=== PATIENT | female | born 1960 | race Caucasian/White ===

== ENCOUNTER 2022-02-25 08:53 | Emergency (ER) | payer MEDICARE, OTHER ==
[~2022-02-25] VITALS: Ht 172.7 cm; Wt 104.8 kg
[~2022-02-25 08:53] MED LIST: AMLODIPINE BESY10 MG PO; ASPIRIN EC81 MG PO; BUPROPION XL150 MG PO; CITALOPRAM HBR40 MG PO; CLONIDINE HCL0.1 MG PO; GABAPENTIN600 MG PO; HUMALOG100 UNIT/1 SUB-Q; HYDROCHLOROTHIA25 MG PO; LEVEMIR100 UNIT/1 SUB-Q; LISINOPRIL20 MG PO; LORATADINE10 MG PO; METFORMIN HCL1000 MG; METHOCARBAMOL750 MG PO; OMEPRAZOLE20 MG PO; PRAVASTATIN SOD40 MG PO; VENTOLIN HFA18 GM INH
--- OUTSIDE RECORDS SUMMARY | 2022-02-25 08:57 | XMS ---
PreManage Notification: CHUY SOTO Security Technical Internship Events No recent Security Events currently on file CRITERIA MET - ANIKETP CARE PROVIDERS CHRIS DENNIS Physician Arcgis Developer 09/24/2017-Current PHONE: [phone] Anna has no Care Guidelines for this patient. E.DChristopher VISIT COUNT (12 MO.) 2 [facility] Estephania - Ilir 1 [place] TOTAL 3 NOTE: Visits indicate total known visits. ED/UCC VISIT TRACKING (12 MO.) 02/25/2022 08:[address] [facility] [place] TYPE: Emergency COMPLAINT: - N/V/D, SOB, LUMP IN CHEST 10/06/2021 18:31 [facility] [place] TYPE: Emergency COMPLAINT: - ankle pain DIAGNOSES: - Type 2 diabetes mellitus with diabetic nephropathy - Chronic kidney disease, stage 4 (severe) - Sprain of unspecified ligament of right ankle, initial encounter - Type 2 diabetes mellitus with diabetic neuropathy, unspecified - Type 2 diabetes mellitus with hyperglycemia - Hypertensive chronic kidney disease with stage 1 through stage 4 chronic kidney disease, or unspecified chronic kidney disease - Hyperlipidemia, unspecified - Sidewalk as the place of occurrence of the external cause - Other slipping, tripping and stumbling without falling, initial encounter - assisted (current) use of insulin - Tobacco use - Other fpc (current) drug therapy 06/07/2021 13:13 [facility] [place] TYPE: Emergency DIAGNOSES: - Contact with and (suspected) exposure to COVID19 - Unspecified asthma, uncomplicated - Other fpc (current) drug therapy - Hypo-osmolality and hyponatremia - Hyperkalemia - Chronic kidney disease, stage 3 unspecified - Type 2 diabetes mellitus with other specified complication - assisted (current) use of oral hypoglycemic drugs - vault person (current) use of insulin - Type 2 diabetes mellitus with hyperglycemia - Type 2 diabetes mellitus with diabetic chronic kidney disease - Cervicalgia - Type 2 diabetes mellitus with hyperosmolarity without nonketotic hyperglycemic-hyperosmolar coma ([facility]) - Personal history of nicotine dependence - Disorder of kidney and ureter, unspecified - Obstructive sleep apnea (adult) (pediatric) - Obesity, unspecified INPATIENT VISIT TRACKING (12 MO.) No inpatient visits to display in this time frame [email or web address]
[2022-02-25] MEDS ORDERED: ONDANSETRON ODT8 MG PO (12:06)
== END 2022-02-25 12:20 | disposition home or self-care (01) ==
LOC: ED 08:53
DX: E86.0 Dehydration (principal); R11.10 Vomiting, unspecified; F12.90 Cannabis use, unspecified, uncomplicated; Z88.5 Allergy status to narcotic agent; Z79.82 Long term (current) use of aspirin; Z79.899 Other long term (current) drug therapy; Z79.4 Long term (current) use of insulin; Z79.84 Long term (current) use of oral hypoglycemic drugs
CPT/HCPCS: 36415; 74176; 76705; 80053; 81001; 83690; 85025; 96361; 96374; 96375; 99284-25; J2405; J7030

== ENCOUNTER 2022-09-02 07:20 | Day surgery (SDC) | payer MEDICARE, OTHER ==
[2022-08-26 09:53] VITALS: BP 103/73
[~2022-09-02] VITALS: Ht 172.7 cm; Wt 103.2 kg
[~2022-09-02 07:20] MED LIST changes: +ATIVAN0.5 MG PO; +COGNIQUIL CAPS1 EACH PO; +FARXIGA5 MG PO; +FLOVENT HFA12 G1 INH; +FOLIC ACID1 MG PO; +INCRUSE ELLI62.5 MCG IH; +ONDANSETRON ODT8 MG PO; +TRAMADOL HCL50 MG PO; +TRIAMCINOLONE A15 G1 TOP; +VICTOZA 2-0.6 MG/0.1 SUB-Q; +VICTOZA 3-0.6 MG/0.1 SUB-Q
[2022-09-02] MEDS ORDERED: HUMULIN R500 UNIT/2 SUB-Q (08:20)
[2022-09-02 08:23] VITALS: BP 156/77
--- NOTE | 2022-09-02 08:40 | NUR ---
PT SITTING ON SIDE OF BED, VOID BAG IN HAND. PT IS DEALING SOME NAUSEA ISSUES GAVE COMFORT, PT REQUESTED PRAYER WILL FOLLOW
--- NOTE | 2022-09-02 10:36 | NUR ---
09/02/22 1036 Libby Molina 1029 PATIENT ARRIVES TO PACU UNRESPONSIVE TO VERBAL STIMULI, ORAL AIRWAY IN PLACE. RESP EVEN AND UNLABORED, NC AT 4 LITERS TURNED OFF ON ARRIVAL TO PACU. 1030 PATIENT OPENING EYES. ORAL AIRWAY REMOVED. PATIENT REORIENTED TO PACU. RESP EVEN AND UNLABORED, ROOM AIR SATS >95%. DENIES PAIN OR NAUSEA. REPOSITIONS SELF TO BACK. HOB ELEVATED.
[2022-09-02 10:54] VITALS: BP 128/64
--- NOTE | 2022-09-02 13:49 | OR ---
[facility] [address], [place] [address] Signed DATE OF OPERATION: 09/02/2022 SURGEON: Manjinder Torres MD PREOPERATIVE DIAGNOSES: 1. Right upper quadrant abdominal pain associated with nausea, vomiting, bloating, and constipation. 2. Sister with colon cancer age 53 and alive in her 70s. 3. Personal history of multiple colonic polyps in 2017 and 2018 at the age of 55 and 56. POSTOPERATIVE DIAGNOSES: 1. Mild diffuse gastritis. 2. Hiatal hernia (38-35 cm). 3. GE junction at 35 cm. 4. 6 mm polyp at 40 cm and left colon (snare). 5. 5 mm polyp at 65 cm in left colon. 6. 4 mm polyp at the base of cecum. 7. 5 mm polyp at proximal right colon. 8. 5 mm polyp at 38 cm in left colon. 9. 4 mm polyp at 10 cm in the rectum. PROCEDURES: 1. EGD with CLOtest and biopsies of the antrum and GE junction. 2. Colonoscopy with hot biopsy and snare polypectomy. ESTIMATED BLOOD LOSS: None. 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 She had her adrenalectomy in 2019. She came with the above-listed complaints. Her workup so far has been negative. We did order a HIDA scan of her gallbladder with ejection fraction. That is to be done next week. In the meantime, she found out that her sister was 53 when she was diagnosed with colon cancer and is still alive in her 70s. She is obviously having trouble with the right upper quadrant abdominal pain, nausea, vomiting, bloating and constipation. She thinks she has chalky camacho like stool. CT scan and MRCP were all negative. The common bile duct is slightly dilated to 8 mm. There were no stones. She cannot recall if an ultrasound of the gallbladder was done for sure. She does not recall HIDA scan. She said her symptoms are ongoing and she is quite miserable. She talked about Dr. Grace Electronically Signed By: MANJINDER TORRES MD 09/02/22 1349 PATIENT NAME: CHUY SOTO OPERATIVE REPORT DATE OF : 62 REPORT #: [id number] PHYSICIAN: MANJINDER TORRES MD PCP: CHRIS DENNIS PA-C REPORT IS CONFIDENTIAL AND NOT TO BE RELEASED WITHOUT AUTHORIZATION [facility] [address], [place] [address] Signed performing her 3 colonoscopies, 2 in 2017 and again in 2018. Apparently, she had a large number of polyps removed. We still do not have those results. She was age 55 and age 56 at that time. She was then asked to follow up in 5 years. She thinks after her initial bowel movement then, her stools are much softer. She is quite coughing and it is chalky in color. In the office, I had given her a pamphlet on both upper and lower endoscopy. We had reviewed that in detail. She understands there is risk including, but not limited to gas bloating, crampy abdominal pain, bleeding, perforation requiring surgery, and missed diagnosis. We had reviewed the bowel prep in detail. She took an entire gallon of polyethylene glycol with actually good results. She thinks she threw up the last 32 ounces. We will let her drink the polyethylene glycol all day. She has had trouble being clean for her previous colonoscopies. Although, today I thought she was actually pretty good. In addition, because of her heavy round face, heavy neck, chest and abdomen from her Bing syndrome plus her advanced medical issues including the sleep apnea and her diabetes, we asked for monitored anesthesia care with propofol infusion. That turned out to be a chung decision. About long term through we had to use an oral airway to keep her from obstructing. She had expressed understanding and wished to proceed. PROCEDURE NOTE: Chuy was taken into our endoscopy suite and placed in the supine semi-recumbent position. The bite block was utilized for the case. She was given monitored anesthesia care with propofol infusion per our nurse manager of operations. She has a difficult airway throughout and we finally were able to place an oral airway once we had her on her side for the colonoscopy. That helped us quite a bit. We passed the scope over into the posterior oropharynx and it looks like she has little mucus just above the vocal cords and slightly below the arytenoids. We passed the scope down the esophagus and out into the duodenum. The duodenum and pyloric channel were unremarkable. She had very mild inflammatory changes throughout the stomach. We took a biopsy of the antrum for pathologic review as well as CLOtest. Upon retroflexion of the scope, we could see a hiatal hernia, but it was at a difficult angle. We withdrew the scope up into the area of the GE junction, which was compliant without stricture. From above, we made sure her hiatal hernia from 38 cm back to 35 cm. She has mild disruption to the Z-line. There was no Evangelista's mucosa. We saw no ulcers in the pyloric bulb or the stomach. We took a biopsy along the edge of the Z-line for pathologic review. There was no Evangelista's mucosa and no distal esophagitis. The middle and upper esophagus were unremarkable. After this, the gastroscope was removed and the gas was suctioned out. Chuy tolerated the upper endoscopy well. Chuy was rotated into the left lateral decubitus position. She was maintained on IV propofol per our nurse manager of operations. A digital rectal exam was performed and this did not demonstrate any significant external hemorrhoids. She had good sphincter tone. There were no masses. The colonoscope was inserted and passed under direct Electronically Signed By: MANJINDER TORRES MD 09/02/22 1349 PATIENT NAME: CHUY SOTO OPERATIVE REPORT DATE OF : 62 REPORT #: [id number] PHYSICIAN: MANJINDER TORRES MD PCP: CHRIS DENNIS PA-C REPORT IS CONFIDENTIAL AND NOT TO BE RELEASED WITHOUT AUTHORIZATION [facility] [address], [place] [address] Signed visualization of the camera. We had to place an oral airway and that was able to settle down her abdominal breathing. We made our way up to the cecum with extra propofol and some abdominal compression. Overall, her prep was actually pretty good. She had a little liquid stool in the cecum and we were able to suction that out. The above-mentioned polyps were easily removed with the help of hot biopsy forceps. We used a combination of the snare and then followed by the hot biopsy forceps back at 40 cm. We did not see any diverticula. Once in the rectum, the scope had been retroflexed and really she has minimal if any internal hemorrhoid tissue. After this, the gas was suctioned out and the colonoscope removed. Chuy tolerated the lower endoscopy quite well. RECOMMENDATIONS: I will see Chuy back in my office in 7 to 14 days to review her results. She had 6 polyps removed out of the colon. In that regard, she could come as early as 3 years, but no later than 5 years for followup colonoscopy. She should always have monitored anesthesia care as described above. She should always do a double bowel prep. Manjinder Torres MD ALB/MODL /[id number] cc: hCris Torres MD Copies: MANJINDER TORRES MD ~ Electronically Signed By: MANJINDER TORRES MD 09/02/22 1349 PATIENT NAME: CHUY SOTO OPERATIVE REPORT DATE OF : 62 REPORT #: [id number] PHYSICIAN: MANJINDER TORRES MD PCP: CHRIS DENNIS PA-C REPORT IS CONFIDENTIAL AND NOT TO BE RELEASED WITHOUT AUTHORIZATION
--- NOTE | 2022-09-04 11:35 | PATH ---
[facility] [address] [place], [place] [address] Signed SPECIMEN(S): A ANTRUM/PYLORUS BIOPSY SPECIMEN(S): B GE JUNCTION BIOPSY SPECIMEN(S): C DESCENDING/LEFT COLON POLYP AT 40 CM SPECIMEN(S): D DESCENDING/LEFT COLON POLYP AT 65 CM SPECIMEN(S): E CECUM POLYP SPECIMEN(S): F PROXIMAL ASCENDING/RIGHT COLON POLYP SPECIMEN(S): G COLON POLYP AT 38 CM SPECIMEN(S): H RECTAL POLYP AT 10 CM SPECIMEN SOURCE: A. ANTRUM/PYLORUS BIOPSY B. GE JUNCTION BIOPSY C. DESCENDING/LEFT COLON POLYP AT 40 CM D. DESCENDING/LEFT COLON POLYP AT 65 CM E. CECUM POLYP F. PROXIMAL ASCENDING/RIGHT COLON POLYP G. COLON POLYP AT 38 CM H. RECTAL POLYP AT 10 CM CLINICAL HISTORY: Right upper quadrant pain; nausea; abdominal bloating; belching; history of colon polyps; chronic constipation. Post: Small hiatal hernia; mild gastritis FINAL PATHOLOGIC DIAGNOSIS: A. Antrum / pylorus biopsy: - Benign gastric antral-type mucosa with focal slight chronic inflammation. - Negative for evidence of Helicobacter organisms on immunostained sections. B. Gastroesophageal junction biopsy: - Benign esophageal mucosa, negative for increased epithelial eosinophils. C. Descending / left colon polyp at 40 cm: - Tubular adenoma (three fragments). D. Descending / left colon polyp at 65 cm: - Tubular adenoma (three fragments). E. Cecum polyp: - Tubular adenoma (two fragments). F. Proximal ascending / right colon polyp: - Tubular adenoma (two fragments). G. Colon polyp at 38 cm: - Hyperplastic polyp (one fragment). H. Rectal polyp at 10 cm: - Hyperplastic polyp (one fragment). PATIENT NAME: CHUY SOTO PATHOLOGY DATE OF : 62 REPORT #: [id number] PHYSICIAN: BELKYS PATHOLOGY PCP: CHRIS DENNIS PA-C REPORT IS CONFIDENTIAL AND NOT TO BE RELEASED WITHOUT AUTHORIZATION [facility] [address] [place], [place] [address] Signed JVR:[facility]:C2NR MICROSCOPIC EXAMINATION: Histologic sections of all submitted blocks are examined by light microscopy. These findings, together with the gross examination, support the pathologic diagnosis. A Helicobacter pylori immunostain is performed with appropriate positive and negative controls on block (A1) and is negative for organisms. A CK AE1/3 immunostain is performed with appropriate controls on block (A1) and is negative for occult carcinoma. JVR:[facility] GROSS DESCRIPTION: A. The specimen, labeled and designated "Rice, antrum/pylorus biopsy," is received in formalin and consists of one daniels soft tissue fragment measuring 0.5 cm. Entirely submitted in (A1). B. The specimen, labeled and designated "Rice, GE junction biopsy," is received in formalin and consists of one daniels soft tissue fragment measuring 0.4 cm. Entirely submitted in (B1). C. The specimen, labeled and designated "Rice, descending/left colon polyp at 40 cm," is received in formalin and consists of three daniels soft tissue fragments, ranging from 0.2 to 0.3 cm. Entirely submitted in (C1). D. The specimen, labeled and designated "Rice, descending/left colon polyp at 65 cm," is received in formalin and consists of four daniels soft tissue fragments, ranging from 0.3 to 0.4 cm. Entirely submitted in (D1). E. The specimen, labeled and designated "Rice, cecum polyp," is received in formalin and consists of three daniels soft tissue fragments, ranging from 0.3 to 0.4 cm. Entirely submitted in (E1). F. The specimen, labeled and designated "Rice, proximal ascending/right colon polyp," is received in formalin and consists of two daniels soft tissue fragments, ranging from 0.1 to 0.2 cm. Entirely submitted in (F1). G. The specimen, labeled and designated "Rice, colon polyp at 38 cm," is received in formalin and consists of one daniels soft tissue fragment measuring 0.3 cm. Entirely submitted in (G1). H. The specimen, labeled and designated "Rice, rectal polyp at 10 cm," is received in formalin and consists of one daniels soft tissue fragment measuring 0.3 cm. Entirely submitted in (H1). VB (under the direct supervision of a pathologist) PATIENT NAME: CHUY SOTO PATHOLOGY DATE OF : 62 REPORT #: [id number] PHYSICIAN: BELKYS SANDOVAL PCP: CHRIS DENNIS PA-C REPORT IS CONFIDENTIAL AND NOT TO BE RELEASED WITHOUT AUTHORIZATION [address] [address] Signed The Gross Description was prepared using a voice recognition system. The report was reviewed for accuracy; however, sound-alike word errors, addition and/or deletions may occur. If there is any question about this report, please contact Client Services. ADDITIONAL NOTES: Immunohistochemical and/or in situ hybridization studies were performed on this case with the appropriate positive controls that react as expected. This test was developed and its performance characteristics determined by [email or web address]. It has not been cleared or approved by the U.S. Food and Drug Administration. The FDA has determined that such clearance or approval is not necessary. This test is used for clinical purposes. It should not be regarded as investigational or for research. [email or web address] is certified under the Clinical Laboratory Improvement Amendments of 1988 (CLIA) as qualified to perform high complexity clinical laboratory testing. This assay has not been validated for specimens that have been decalcified. PERFORMING LABORATORY: The technical component was performed by [email or web address], [address] [place] [id number] (CLIA# [id number]). Professional interpretation was performed by [facility] [address] [address] (CLIA#: [id number]). Diagnostician: Dru Potter MD Pathologist Electronically Signed 09/04/2022 Copies: ~ PATIENT NAME: CHUY SOTO PATHOLOGY DATE OF : 62 REPORT #: [id number] PHYSICIAN: BELKYS SANDOVAL PCP: CHRIS DENNIS PA-C REPORT IS CONFIDENTIAL AND NOT TO BE RELEASED WITHOUT AUTHORIZATION
== END 2022-09-02 11:00 | disposition home or self-care (01) ==
LOC: OPS 07:20 → DS 07:20 → OPS 09:15 → DS 09:15 → OPS 11:00 → DS 11:30
PROVIDERS: ATTEND Colon & Rectal Surgery
PROC: 0DBK8ZZ Excision of Ascending Colon, Via Natural or Artificial Opening Endoscopic (ICD-10-PCS; 2022-09-02)
PROC: 0DBP8ZZ Excision of Rectum, Via Natural or Artificial Opening Endoscopic (ICD-10-PCS; 2022-09-02)
PROC: 0DBM8ZZ Excision of Descending Colon, Via Natural or Artificial Opening Endoscopic (ICD-10-PCS; 2022-09-02)
PROC: 0DBH8ZZ Excision of Cecum, Via Natural or Artificial Opening Endoscopic (ICD-10-PCS; 2022-09-02)
PROC: 0DB48ZX Excision of Esophagogastric Junction, Via Natural or Artificial Opening Endoscopic, Diagnostic (ICD-10-PCS; principal; 2022-09-02 09:15)
PROC: 0DB68ZX Excision of Stomach, Via Natural or Artificial Opening Endoscopic, Diagnostic (ICD-10-PCS; 2022-09-02 09:15)
DX: D12.2 Benign neoplasm of ascending colon (principal); R10.11 Right upper quadrant pain; E11.22 Type 2 diabetes mellitus with diabetic chronic kidney disease; E66.9 Obesity, unspecified; G47.33 Obstructive sleep apnea (adult) (pediatric); K83.8 Other specified diseases of biliary tract; Z86.018 Personal history of other benign neoplasm; Z80.0 Family history of malignant neoplasm of digestive organs; K59.00 Constipation, unspecified; Z68.34 Body mass index [BMI] 34.0-34.9, adult; Z79.4 Long term (current) use of insulin; N18.30 Chronic kidney disease, stage 3 unspecified; I12.9 Hypertensive chronic kidney disease with stage 1 through stage 4 chronic kidney disease, or unspecified chronic kidney disease; I25.10 Atherosclerotic heart disease of native coronary artery without angina pectoris; Z87.891 Personal history of nicotine dependence; K44.9 Diaphragmatic hernia without obstruction or gangrene; K29.70 Gastritis, unspecified, without bleeding; Z86.010 Personal history of colon polyps; D12.0 Benign neoplasm of cecum; D12.4 Benign neoplasm of descending colon; K62.1 Rectal polyp
CPT/HCPCS: 00731; 36415; 87077; J2704; J7121